=== PATIENT | male | born 1965 | race Two or more races ===

== ENCOUNTER 2024-11-15 18:38 | Inpatient (IN) | payer OTHER ==
[~2024-11-15] VITALS: Ht 162.6 cm; Wt 101.6 kg
[2024-11-15] MEDS ORDERED: LOSARTAN POTAS100 MG PO (19:21)
[2024-11-15] MEDS ORDERED: PRILOSEC OTC20 MG PO (19:21)
[2024-11-15] MEDS ORDERED: TOPROL XL50 M1 (19:21)
--- NOTE | 2024-11-15 19:31 | NUR ---
PTE ALERTA Y ORIENTADO X3. REFIERE HABERSE CAIDO DE BICICLETA Y GOLPEDO COSTADO DERECHO. PTE PRESENTA HINCHAZON EN ANMOL BRIONES
[2024-11-15 21:38] LABS: HEMATOCRIT 36.3 % (39.0-48.0); HEMOGLOBIN 12.8 g/dL (13-16.00); MEAN CELL VOLUME 94.9 fL (80.0-100.00); MEAN CORPUSCULAR HEMOGLOBIN 33.6 pg (27.00-32.0); MEAN CORPUSCULAR HGB CONC 35.4 g/dl (32.0-36.0); PLATELET COUNT 201 K/uL (150-450); RED BLOOD COUNT 3.82 M/uL (4.00-6.00)
[2024-11-15 21:56] LABS: D DIMER 3.69 MG/L; PARTIAL THROMBOPLASTIN TIME 25.9 SECONDS (22.0-34.0)
[2024-11-15 21:57] LABS: PROTHROMBIN TIME 10.9 SECONDS (9.0-11.5)
[2024-11-15 22:01] LABS: ALBUMIN 4.3 gm/dL (3.4-5.0); BILIRUBIN TOTAL 0.94 mg/dL (0.3-1.2); CALCIUM 9.2 mg/dL (8.5-10.1); CREATININE SERUM 0.83 mg/dL (0.70-1.30); GFR 94.19; GLOBULINA 3.5 G/DL (2.4-3.5); POTASSIUM 3.48 mEq/L (3.5-5.1); TOTAL PROTEIN 7.8 gm/dL (6.4-8.2)
--- NOTE | 2024-11-15 22:03 | NUR ---
SE EDUCA A PACIENTE SOBRE TRATAMIENTO MEDICO EL CUAL REFIERE ENTENDER, SE REALIZA KAOR DE MUESTRAS BAJO MEDIDAS ASEPTICAS Y SE MANTIENE BAJO OBSERVACION PARA CONTINUACION DE TRATAMIENTO.
[2024-11-15] MEDS ORDERED: 0.9 % SODIUM CHLORIDE 1,000 ML IV SCH (23:45)
[2024-11-15] MEDS ORDERED: ACETAMINOPHEN 500 MG GEL..CAP PO PRN (23:45)
[2024-11-15] MEDS ORDERED: CEFTRIAXONE SODIUM 2,000 MG in 0.9 % SODIUM CHLORIDE 100 ML IV SCH (23:57)
[2024-11-15] MEDS ORDERED: METOPROLOL SUCCINATE 50 MG TAB.SR.24H PO SCH (23:57)
[2024-11-15] MEDS ORDERED: FAMOTIDINE/PF 20 MG in 0.9 % SODIUM CHLORIDE 8 ML IV PUSH SCH (23:58)
[2024-11-16] MEDS ORDERED: FAMOTIDINE/PF 20 MG/2 ML VIAL ONE (00:27)
[2024-11-16] MEDS ORDERED: CEFTRIAXONE SODIUM 2,000 MG VIAL ONE (00:27)
[2024-11-16] MEDS ORDERED: ORPHENADRINE CITRATE 30 MG/ML AMPUL IM ONE (00:45)
[2024-11-16] MEDS ORDERED: KETOROLAC TROMETHAMINE 30 MG VIAL IV ONE (00:45)
[2024-11-16] MEDS ORDERED: KETOROLAC TROMETHAMINE 30 MG VIAL ONE (00:52)
[2024-11-16] MEDS ORDERED: ORPHENADRINE CITRATE 30 MG/ML AMPUL ONE (00:52)
[2024-11-16 02:10] VITALS: BP 149/85; O2SAT 97
[2024-11-16 02:18] LABS: INR 0.99; PARTIAL THROMBOPLASTIN TIME 25.1 SECONDS (22.0-34.0); PROTHROMBIN TIME 10.8 SECONDS (9.0-11.5)
[2024-11-16 04:04] VITALS: BP 161/90; O2SAT 97
[2024-11-16 08:55] VITALS: BP 130/72; O2SAT 96
[2024-11-16] MEDS ORDERED: LOSARTAN POTASSIUM 100 MG TABLET PO SCH (09:00)
[2024-11-16 10:46] LABS: URINE APPEARANCE Clear; URINE BILIRRUBIN Negative (NEGATIVE); URINE BLOOD Negative; URINE COLOR Yellow; URINE GLUCOSE Negative (NEGATIVE); URINE KETONE Negative (NEGATIVE); URINE LEUKOCYTE Negative; URINE NITRATE Negative; URINE PROTEIN Negative (NEGATIVE); URINE UROBILINOGEN 0.2 E.U./dl
[2024-11-16 10:51] LABS: URINE BACTERIA 12.2 uL (0.0-1933); URINE EPITHELIAL CELLS 6.8 uL (0.0-38.8); URINE RBC 17.3 uL (0.0-20.8)
[2024-11-16 11:40] LABS: URINE CAST 0.58 uL (0.0-1.40)
[2024-11-16 16:46] VITALS: BP 142/74; O2SAT 94
[2024-11-16] MEDS ORDERED: LACTOBACILLUS ACIDOPHILUS 1 CAP CAP PO SCH (17:00)
[2024-11-17 01:19] VITALS: BP 136/66; O2SAT 97
[2024-11-17 09:11] VITALS: BP 147/80; O2SAT 98
== END 2024-11-17 11:16 | disposition home or self-care (01) | DRG 603 ==
LOC: ER 18:40 → MEDI 23:55
PROVIDERS: General Practice; Preventive Medicine Public Health & General Preventive Medicine; ADMIT Internal Medicine; ATTEND Internal Medicine
PROC: BQ3DZZZ Magnetic Resonance Imaging (MRI) of Right Lower Leg (ICD-10-PCS; principal; 2024-11-15)
PROC: B54DZZZ Ultrasonography of Bilateral Lower Extremity Veins (ICD-10-PCS; 2024-11-15)
DX: L08.89 Other specified local infections of the skin and subcutaneous tissue (principal); S80.11XS Contusion of right lower leg, sequela; V19.9XXS Pedal cyclist (driver) (passenger) injured in unspecified traffic accident, sequela; M79.661 Pain in right lower leg; I10 Essential (primary) hypertension